=== PATIENT | male | born 1985 | race Caucasian/White ===

== ENCOUNTER 2021-05-26 21:44 | Emergency (ER) | payer SELFPAY ==
[2021-05-26 21:52] VITALS: BP 132/85; PULSE 98; RESP 16; TEMP 36.7; O2SAT 98
--- NOTE | 2021-05-26 22:03 | W.ED.WOUNDLC ---
HPI - Wound/Laceration General: Chief Complaint: Wound/Laceration Stated Complaint: rash abd, pain on rt hand Time Seen by Provider: 05/26/21 21:45 History of Present Illness: HPI narrative: Patient is a 35-year-old male comes to the ED with right hand pain. Patient says that about 3 days ago he started having pain in his right thumb. He denies any known injury or trauma to right hand or thumb. Right before the pain started patient says about 3 days ago he was out cutting some wood all day and after he finished doing that is when pain started. Today he woke up and he had blood blister to the distal pad of right thumb. It has continued to get bigger throughout the day. Pain he rates an 8 out of 10 and he describes it as a burning pain. Any movement with right thumb causes worsening pain. Patient has not taken any ibuprofen or Tylenol today. Associated symptoms: Denies chills, fever(s), nausea or vomiting Review of Systems Const: Denies: fever(s), chills or fatigue Eyes: Denies: change in vision or eye discomfort ENMT: Denies: throat pain, odynophagia, nasal discharge or nasal congestion Card: Denies: chest pain, palpitations, edema, swelling of feet/ankles, dyspnea on exertion or orthopnea Resp: Denies: dyspnea, productive cough or non-productive cough GI: Denies: abdominal pain, nausea, vomiting, diarrhea, constipation or hematochezia : Denies: flank pain, difficulty urinating, dysuria or hematuria Musc: Reports: extremity pain (right hand-thumb), extremity swelling (right hand-thumb) and limited range of motion (thumb due to pain); Denies: neck pain or back pain Skin/Breast: Denies: rash or new lesions Neuro: Denies: headache(s), numbness in extremities or weakness in extremities Physical Exam Const: COMMON NORMALS: no acute distress, patient oriented x3 and alert GENERAL APPEARANCE: cooperative and comfortable HENMT: COMMON NORMALS: normocephalic HEAD & SCALP: normocephalic MOUTH: Normal oral and palatal mucosa present THROAT: posterior oropharynx normal and uvula midline Neck/C-Spine: COMMON NORMALS: supple GENERAL: Yes normal visual inspection Resp: COMMON NORMALS: normal respiratory effort, No retractions, No use of accessory muscles and clear to auscultation bilaterally AUSCULTATION: clear to auscultation bilaterally Cardio: COMMON NORMALS: regular rate, regular rhythm, S1 normal heart sound present, S2 normal heart sound present, No gallops present (Cardio), No clicks present (Cardio), No murmurs present (Cardio) and Peripheral pulses 2+ throughout RATE: regular rate RHYTHM: regular rhythm HEART SOUNDS: S1 normal heart sound present and S2 normal heart sound present PERIPHERAL PULSES: Peripheral pulses 2+ throughout GI: COMMON NORMALS: Normal to inspection, nondistended, normoactive bowel sounds present, Soft to palpation, non-tender and no masses PALPATION: Yes Soft to palpation : COMMON NORMALS: Yes no CVA tenderness BLADDER/KIDNEY EXAM: Yes no CVA tenderness Back/Pelvis: COMMON NORMALS: no CVA tenderness Extremity: GENERAL: Yes normal exam except as noted RIGHT UPPER EXTREMITY: Yes hand & digits (Thumb-no deformity noted.) Right hand and digits: Yes inspection (Swelling of thumb and blood blister on distal pad), Yes palpation (Tender to palpation all throughout thumb), Yes ROM exam (Limited due to pain) and Yes neurovascular exam (Intact) Neuro: COMMON NORMALS: patient oriented x3 and moves all extremities SENSORIUM/ORIENTATION: Yes alert Skin: GENERAL SKIN EXAM: dry skin Course Vital Signs: Vital signs: Vital Signs Temperature 98.1 F 05/26/21 21:52 Pulse Rate 98 05/26/21 21:52 Respiratory Rate 16 05/26/21 21:52 Blood Pressure 132/85 05/26/21 21:52 Pulse Oximetry 98 05/26/21 21:52 MDM - Wound/Laceration MDM Narrative: Medical decision making narrative: Patient 35-year-old male comes to the ED with painful swollen right thumb. He also has a blood blister to the pad of his right thumb. pain in his thumb started after he was cutting some wood outside. He denies any known trauma or injury. This morning he woke up and he had a blood blister that has continued to get bigger. Patient's right thumb has a large blood blister at the distal pad. His right thumb appears swollen and has some erythema and is tender to the touch. X-ray showed no acute findings. Vitals are stable. Differential diagnosis?possible cellulitis or arthritis. Patient does not have a current primary care physician and would like a referral. I placed order with case management for patient to be referred to a PCP to get established with. Patient was discharged home with a prescription for prednisone, ibuprofen, Bactrim and a couple hydrocodone for any acute pain. He was told to have his thumb reevaluated in the next 48 hours. Return to ED precautions given. Patient understood and agree with plan. Imaging Data^: Xray Ortho: Attestation: I personally reviewed and interpreted this imaging study as follows: Radiologist's impression: [address] [address] XRay Report Signed Patient: Dalton Szymanski Unit #: [id number] : 1985 Age/Sex: 35 / M ADM Date: 05/26/21 Loc: ER Room/Bed: Attending Dr: Ordering Provider/Ordering MD: Jonah Carvalho Date of Service: 05/26/21 Procedure(s): XR hand RT min 3V* 33628 Accession Number(s): [id number] Report Number: [id number] PROCEDURE INFORMATION: Exam: XR Right Hand Exam date and time: 05/26/2021 10:02 PM Age: 35 years old Clinical indication: Swelling; Hand; Right; Additional info: Right thumb swelling and pain with no injury TECHNIQUE: Imaging protocol: XR Right hand. Views: 3 or more views. Total images: 3 COMPARISON: No relevant prior studies available. FINDINGS: Bones/joints: Normal. Soft tissues: Normal. XR/XR hand RT min 3V* [id number] IMPRESSION: No acute findings. Dictated By: Purdencio Rojas Signed By: Prudencio Rojas Signed Date/Time: 05/26/212239 DD/ 01 Discharge Plan Discharge Patient Disposition: Home Clinical Impression: Pain of right thumb, Blood blister, Localized swelling of right thumb Condition: Stable Prescriptions: New Bactrim DS 800-160 mg tablet 1 tab PO BID 7 Days Qty: 14 RF: 0 prednisone 20 mg tablet 20 mg PO BID 7 Days Qty: 14 RF: 0 ibuprofen 800 mg tablet 800 mg PO Q8H PRN (Reason: pain) Qty: 30 RF: 0 Discharge Orders: Discharge ED (Routine); Ordered 12/23/21 Ordered By: Jonah Carvalho Discharge Diet: Regular Discharge Activity: Resume usual activity Patient Instructions: Blister (ED), Opioid Safety Activity Restrictions/Additional Instructions: Follow-up with medical provider as directed within 48 hours to have him reevaluated. Take medications as prescribed. Return to the ER or your medical provider if condition worsens. Please read and understand discharge instructions. Thank you for choosing [facility] for your healthcare needs today. Please realize this is an emergency room and that we are providing you with a medical screening exam and this may not be complete and all inclusive of all the testing and or work up that you may need to determine your ailment or severity of your illness. It is very important that you follow up as instructed or that you return to the Emergency Department should you have concerns or if your condition changes or worsens in any way. Coding Level of Care Code ED Mink Slicer for Mitul Montenegro Exam Comprehensive
[2021-05-26] MEDS: ibuprofen 800 mg tablet PO (22:18)
--- NOTE | 2021-06-01 13:59 | DCPLANNER ---
collision center manager had message to speak with patient about getting established with a primary care physician. collision center manager called phone number in chart, was told that no one by that name was at that number.
== END 2021-05-26 23:12 | disposition home or self-care (01) ==
PROVIDERS: Emergency Provider Physician Assistant
DX: M79.641 Pain in right hand (principal); S60.321A Blister (nonthermal) of right thumb, initial encounter; X58.XXXA Exposure to other specified factors, initial encounter; M79.89 Other specified soft tissue disorders
CPT/HCPCS: 73130; 99283